=== PATIENT | female | born 1965 | race Caucasian/White ===

== ENCOUNTER 2021-02-16 07:54 | Day surgery (SDC) | payer SELFPAY ==
[2021-02-16] MEDS ORDERED: BACITRACIN 15 GM TUBE TOPICAL OINTMENT ONE (10:18)
[2021-02-16] MEDS ORDERED: LIDOCAINE 1%/EPI 1:100000 (20 ML MULTI DOSE VIAL) ONE (10:19)
[2021-02-16] MEDS ORDERED: MIDAZOLAM HCL 2 MG/2 ML SINGLE DOSE VIAL ONE ×2 (10:32)
[2021-02-16] MEDS ORDERED: PROPOFOL 20 ML ONE ×8 (10:32→17:12)
[2021-02-16] MEDS ORDERED: fentaNYL CITRATE 250 MCG/5 ML VIAL ONE (10:32)
[2021-02-16] MEDS ORDERED: LIDOCAINE HCL/PF 2% SDV 5ML VIAL ONE (10:34)
[2021-02-16] MEDS ORDERED: ceFAZolin SODIUM 1 GM VIAL ONE ×2 (10:34→15:23)
[2021-02-16] MEDS ORDERED: LIDOCAINE HCL 2% JELLY (5 ML/TUBE) ONE (10:34)
[2021-02-16] MEDS ORDERED: KETOROLAC TROMETHAMINE 30 MG/1 ML VIAL ONE (10:34)
[2021-02-16] MEDS ORDERED: DEXAMETHASONE SOD PHOSPHATE 4 MG/1 ML VIAL ONE (10:34)
[2021-02-16] MEDS ORDERED: ONDANSETRON 4 MG/2 ML VIAL ONE (10:34)
[2021-02-16] MEDS ORDERED: ePHEDrine SULFATE 50 MG/1 ML AMPULE ONE ×2 (11:36→14:12)
[2021-02-16] MEDS ORDERED: SEVOFLURANE 250 ML BTL ONE (15:53)
[2021-02-16] MEDS ORDERED: GLYCOPYRROLATE 0.2 MG/1 ML VIAL ONE (16:41)
[2021-02-16] MEDS ORDERED: NEOSTIGMINE METHYLSULFATE 0.5 MG/1 ML - 10 ML MDV ONE (16:42)
[2021-02-16] MEDS ORDERED: BSS (NA/CA/MG/K) BALANCED SALT SOLUTION OPHTH SOLN 15 ML BOTTLE ONE (17:16)
[2021-02-16] MEDS ORDERED: ONDANSETRON 4 MG/2 ML VIAL IVPUSH PRN ×2 (17:54→18:09)
[2021-02-16] MEDS ORDERED: LACTATED RINGERS SOLUTION 1,000 ML IV SCH (18:00)
[2021-02-16] MEDS ORDERED: LABETALOL HCL 5 MG/1 ML (100MG/20 ML VIAL) ONE (18:08)
[2021-02-16] MEDS ORDERED: LABETALOL HCL 5 MG/1 ML (100MG/20 ML VIAL) IVPUSH ONE (18:09)
[2021-02-16] MEDS ORDERED: oxyCODONE HCL 5 MG TABLET PO PRN (18:09)
[2021-02-16] MEDS ORDERED: PROMETHAZINE HCL 25 MG/1 ML VIAL IVPUSH PRN (18:09)
[2021-02-16] MEDS ORDERED: cloNIDine HCL 0.1 MG TABLET PO ONE (18:16)
[2021-02-16] MEDS: CEFAZOLIN 1 GM/D5W 1 GM/50 ML BAG IVPB SCH (21:23)
[2021-02-17] MEDS: CEFAZOLIN 1 GM/D5W 1 GM/50 ML BAG IVPB SCH ×2 (03:18→08:30)
[2021-02-17] MEDS: ACETAMINOPHEN 325 MG TABLET (FP) PO PRN ×2 (04:00→09:01)
[2021-02-17 06:23] VITALS: PULSE 68
[2021-02-17] MEDS: oxyCODONE HCL 5 MG TABLET PO PRN ×2 (09:01)
[2021-02-17] MEDS ORDERED: ONDANSETRON *ODT* 4 MG TABLET SL ONE (12:10)
[2021-02-17 12:45] VITALS: BP 120/64; TEMP 98
== END 2021-02-17 12:35 | disposition home or self-care (01) ==
LOC: FASU 07:54 → FM/S 19:55 → FASU 02-17 12:35
PROVIDERS: ATTEND Plastic Surgery
CPT/HCPCS: 94760; J0735; Q0162